=== PATIENT | male | born 1940 | race Caucasian/White ===

== ENCOUNTER 2016-08-24 15:41 | Inpatient (IN) | payer OTHER, MEDICAID ==
[~2016-08-24] VITALS: Ht 193 cm; Wt 86.6 kg
[2016-08-24 15:45] VITALS: BP 132/91; PULSE 82; RESP 18; TEMP 97.2; O2SAT 95
--- NOTE | 2016-08-24 15:52 | NUR ---
Placed in room [address] monitor, blood pressure machine and pulse oximeter. To gown for exam. Side rails up. Report given to Bhavana VALENTINE.
--- NOTE | 2016-08-24 15:53 | NUR ---
Pupils equal and reactive to light bilaterally. No facial droop noted. No smile deficit noted. Speech clear. Bilateral hand engraver letter equal. Bilateral foot push equal.
--- NOTE | 2016-08-24 15:53 | NUR ---
Stable condition, son in law present. Patient alert to name and event, in and out of confusion. Son in law states that his called patient last night but that he did not know who the was-per son in law, patient's baseline is confused but he always remembers family and is concerned about increased confusion. Son in law also states that patient became quickly tired when walking today (not baseline). Patient denies feeling unusual or tired, shortness of breath, chest pain, pressure or radiating pain.No other complaints/injuries per son in law/patient or noted.
--- NOTE | 2016-08-24 15:54 | NUR ---
Dr. Mccauley at bedside
[2016-08-24] MEDS ORDERED: NACL 0.9% 1,000 ML IV ONE (17:00)
[2016-08-24] MEDS ORDERED: MORPHINE 4 MG/ML INJ. SYRINGE IVP ONE (17:00)
[2016-08-24] MEDS ORDERED: ONDANSETRON HCL 4 MG/5 ML UDC PO ONE (17:00)
[2016-08-24 17:04] LABS: BASOPHILS # (AUTO) 0.1 K/uL (0.0-0.2); BASOPHILS % (AUTO) 0.7 % (0.0-2.0); EOSINOPHILS # (AUTO) 0.2 K/uL (0.0-0.4); EOSINOPHILS % (AUTO) 2.8 % (0.0-4.0); HEMATOCRIT 45.8 % (36-54); HEMOGLOBIN 14.8 g/dL (14.0-18.0); LYMPHOCYTES # (AUTO) 1.4 K/uL (1.0-5.5); LYMPHOCYTES % (AUTO) 17.1 % (20.5-51.5); MEAN CORPUSCULAR HEMOGLOBIN 31 pg (27-31); MEAN CORPUSCULAR HGB CONC 32 % (32-36); MEAN CORPUSCULAR VOLUME 94 fL (79.0-98.0); MONOCYTES # (AUTO) 0.5 K/uL (0.0-1.0); MONOCYTES % (AUTO) 6.5 % (1.7-9.3); NEUTROPHILS # (AUTO) 6.1 K/uL (1.8-7.7); NEUTROPHILS % (AUTO) 72.9 % (40.0-70.0); PLATELET COUNT (AUTO) 183 K/uL (130-430); RED BLOOD CELL COUNT(AUTO) 4.87 MIL/uL (4.2-6.2); RED CELL DISTRIBUTION WIDTH 13.6 % (9.0-15.0); WHITE BLOOD COUNT (AUTO) 8.3 K/uL (4.8-10.8)
[2016-08-24 17:12] LABS: ANION GAP 9 (5-15); CHLORIDE 103 mmol/L (98-107); CREATININE 1.37 mg/dL (0.55-1.30); GLUCOSE 117 mg/dL (70-99); POTASSIUM 4.3 mmol/L (3.5-5.1); SODIUM SERUM 135 mmol/L (136-145); UREA NITROGEN, BLOOD 20 mg/dL (8-21)
--- NOTE | 2016-08-24 17:12 | NUR ---
Patient returned from CT, stable condition.
[2016-08-24 17:17] LABS: ALANINE AMINOTRANSFERASE 50 U/L (12-78); ALBUMIN 3.8 g/dL (3.4-4.8); ASPARTATE AMINOTRANSFERASE 36 U/L (10-37); TOTAL BILIRUBIN 1.7 mg/dL (0.0-1.0); TOTAL PROTEIN, SERUM 7.3 g/dL (6.4-8.3)
[2016-08-24 17:23] LABS: PROTHROMBIN TIME 78.9 SECS (9.5-12.5)
[2016-08-24 17:24] LABS: INR 6.8 (0.80-1.20)
[2016-08-24] MEDS ORDERED: ASPIRIN 81 MG TAB.CHEW PO ONE (18:00)
--- NOTE | 2016-08-24 18:00 | NUR ---
Patient denies feeling unusual or tired, shortness of breath, chest pain, pressure or radiating pain.
--- NOTE | 2016-08-24 18:01 | NUR ---
Clarified with Dr. Mccauley regarding Aspirin order with high PT and INR, stated need to still administer for patient.
[2016-08-24] MEDS ORDERED: AMI200 PO (18:51)
[2016-08-24] MEDS ORDERED: WARF2.5T2 PO (18:51)
[2016-08-24] MEDS ORDERED: COR6.25 PO (18:51)
[2016-08-24] MEDS ORDERED: ENAL5TAB85 PO (18:51)
[2016-08-24] MEDS ORDERED: POTA20TA83 PO (18:51)
--- NOTE | 2016-08-24 18:51 | NUR ---
Medication reconciliation completed with information provided by son in law. Any prior medication reconciliation on file was reviewed and corrected.
--- NOTE | 2016-08-24 19:13 | NUR ---
Report given to Sameer RN over phone, night RN to transfer patient (care endorsed)
[2016-08-24 19:21] VITALS: BP 127/89; PULSE 68; RESP 18; TEMP 98; O2SAT 100
--- NOTE | 2016-08-24 19:21 | NUR ---
Admission Note Received patient from ER with diagnosis of WEAKNESS, POSITIVE TROPONIN, COAGULOPATY. Initial Plan of Care discussed-patient verbalized understanding. Family at bedside. Oriented to room, call light, pain management and safety.
--- NOTE | 2016-08-24 19:25 | NUR ---
PM ASSESSMENT PT. A/OX2, WITH PERIODS OF FORGETFULNESS, VITAL SIGNS STABLE, NO DISTRESS NOTED, DENIES PAIN, UPDATED WITH PLAN OF CARE, ENCOURAGED PT. TO USE CALL LIGHT FOR ASSISTANCE, CALL LIGHT WITHIN REACH, WILL CONTINUE TO MONITOR.
--- NOTE | 2016-08-24 19:30 | NUR ---
Patient will be admitted to care of . Admitted to tele unit. Will go to room 121A. Belongings list completed. Summary report printed. Report given to Ryan via phone
--- NOTE | 2016-08-24 19:30 | NUR ---
[facility] 2 Licensed nurse present. IV present no signs or symptoms of infiltration.
[2016-08-24 20:00] VITALS: BP 127/89; PULSE 68; RESP 18; TEMP 98; O2SAT 100
--- NOTE | 2016-08-24 21:00 | NUR ---
AMBULATION SON IN LAW AT BEDSIDE, AMBULATED WITH PT. DOWN THE HALLWAY, AMBULATED BACK TO BED SAFELY, BED ALARM BACK ON.
--- NOTE | 2016-08-24 23:00 | NUR ---
DR. ELIDA MARRERO AT BEDSIDE.
[2016-08-25] VITALS (8 sets, daily range): BP systolic 98–142; BP diastolic 56–96; PULSE 60–80; RESP 16–19; TEMP 96.2–97.2; O2SAT 93–99
--- NOTE | 2016-08-25 01:00 | NUR ---
RN ROUNDS PT. RESTING QUIETLY, VITAL SIGNS STABLE, NO DISTRESS NOTED, DENIES PAIN. CALL LIGHT WITHIN REACH, WILL CONTINUE TO MONITOR.
--- NOTE | 2016-08-25 03:00 | NUR ---
RN ROUNDS PT. RESTING QUIETLY, VITAL SIGNS STABLE, NO DISTRESS NOTED, DENIES PAIN. CALL LIGHT WITHIN REACH, WILL CONTINUE TO MONITOR.
--- NOTE | 2016-08-25 03:42 | NUR ---
IV RESTART IV TO LAC FOUND OUT OF PLACE. NEW IV RESTARTED TO R. WRIST 20G. SALINE LOCKED, SECURED WITH KRELIX WRAP.
--- NOTE | 2016-08-25 05:00 | NUR ---
RN ROUNDS PT. RESTING QUIETLY, VITAL SIGNS STABLE, NO DISTRESS NOTED, DENIES PAIN. CALL LIGHT WITHIN REACH, WILL CONTINUE TO MONITOR.
--- NOTE | 2016-08-25 05:51 | NUR ---
MORNING CONSULT FOR DR ORTIZ WAS CALLED AT 0550 AM SPOKE WITH SALEEM
[2016-08-25 06:18] LABS: BASOPHILS # (AUTO) 0.1 K/uL (0.0-0.2); BASOPHILS % (AUTO) 0.7 % (0.0-2.0); EOSINOPHILS # (AUTO) 0.1 K/uL (0.0-0.4); HEMATOCRIT 48.9 % (36-54); HEMOGLOBIN 15.9 g/dL (14.0-18.0); LYMPHOCYTES # (AUTO) 1.1 K/uL (1.0-5.5); MEAN CORPUSCULAR HEMOGLOBIN 31 pg (27-31); MEAN CORPUSCULAR HGB CONC 33 % (32-36); MEAN CORPUSCULAR VOLUME 94 fL (79.0-98.0); MONOCYTES # (AUTO) 0.9 K/uL (0.0-1.0); MONOCYTES % (AUTO) 7.9 % (1.7-9.3); NEUTROPHILS # (AUTO) 8.8 K/uL (1.8-7.7); NEUTROPHILS % (AUTO) 80.4 % (40.0-70.0); PLATELET COUNT (AUTO) 170 K/uL (130-430); RED BLOOD CELL COUNT(AUTO) 5.19 MIL/uL (4.2-6.2); RED CELL DISTRIBUTION WIDTH 13.6 % (9.0-15.0)
--- NOTE | 2016-08-25 06:32 | NUR ---
CLOSING NOTES PT. RESTING QUIETLY, VITAL SIGNS STABLE, NO DISTRESS NOTED, DENIES PAIN. CALL LIGHT WITHIN REACH.
[2016-08-25 06:41] LABS: ALANINE AMINOTRANSFERASE 42 U/L (12-78); ALBUMIN 3.5 g/dL (3.4-4.8); ANION GAP 7 (5-15); ASPARTATE AMINOTRANSFERASE 33 U/L (10-37); CHLORIDE 107 mmol/L (98-107); CREATININE 1.35 mg/dL (0.55-1.30); GLUCOSE 111 mg/dL (70-99); POTASSIUM 4.5 mmol/L (3.5-5.1); SODIUM SERUM 137 mmol/L (136-145); TOTAL BILIRUBIN 2.2 mg/dL (0.0-1.0); UREA NITROGEN, BLOOD 21 mg/dL (8-21)
--- NOTE | 2016-08-25 07:19 | NUR ---
A/OX2, ABLE TO STATE HIS NAME AND TIME, BUT IS NOT AWARE OF WHERE HE IS AT OR WHY HE IS HERE. PACED RHYTHM ON MONITOR. IV ON RIGHT WRST, #20, SL. NO SIGNS OF DISTRESS NOTED AT THIS TIME. CALL LIGHT IN PLACE, BED LOCKED AND AT LOWEST POSITION, BED ALARM ON, AND INSTRUCTED PATIENT TO USE CALL LIGHT FOR NEEDS. WILL MONITOR CLOSELY.
[2016-08-25] MEDS: POTASSIUM CHLORIDE 20 MEQ TAB.PRT.SR PO SCH (08:31)
[2016-08-25] MEDS: AMIODARONE HCL 200 MG TABLET PO SCH (08:32)
[2016-08-25] MEDS: ENALAPRIL MALEATE 5 MG TABLET (VASOTEC) PO SCH (08:32)
[2016-08-25] MEDS: CARVEDILOL 6.25 MG TABLET (COREG) PO SCH (08:32)
[2016-08-25] MEDS ORDERED: WARFARIN SODIUM 2.5 MG TABLET PO SCH (09:00)
[2016-08-25 09:42] LABS: INR 7.9 (0.80-1.20); PROTHROMBIN TIME 91.3 SECS (9.5-12.5)
--- NOTE | 2016-08-25 09:45 | NUR ---
patient is confused and insisted that his friend will come in to pick him up. Dr. Zuniga is called, awaiting call back.
[2016-08-25] MEDS ORDERED: PHYTONADIONE 10 MG/ML AMP SUBCUT ONE (10:15)
[2016-08-25] MEDS ORDERED: FUROSEMIDE 20 MG/2 ML VIAL IVP ONE (10:30)
--- NOTE | 2016-08-25 10:30 | NUR ---
DR MARRERO IS HERE TO SEE PATIENT. ORDERS WERE GIVEN, WILL BE CARRIED OUT.
--- NOTE | 2016-08-25 12:50 | NUR ---
PATIENT FINISHED EATING HIS LUNCH. NO SIGNS OF ACUTE DISTRESS NOR AGITATION NOTED.
--- NOTE | 2016-08-25 14:25 | NUR ---
PATIENT IS RESTING AT THE FRONT LOBBY OF THE HOSPITAL. ABLE TO AMBULATE WITH ASSIST FOR ABOUT 30 FEET BEFORE C/O SOB; O2 SAT 91% ON ROOM AIR.
--- NOTE | 2016-08-25 16:20 | NUR ---
patient is at rest in bed, no signs of distress noted. Paced rhythm on monitor.
--- NOTE | 2016-08-25 18:30 | NUR ---
Patient is at rest, no signs of distress noted. Dr. Miles assessed patient, and orders were given.
--- NOTE | 2016-08-25 19:20 | NUR ---
INITIAL NOTES RECVD PT IN BED AWAKE/ALERT BUT CONFUSED. NO S/S OF PAIN OR ANY DISTRESS NOTED. IV NOTED TO R WRIST G 20, NO INFILTRATE AND WITH GOOD BLOOD RETURN. BUE ARE STRONG BUT BLE ARE WEAK; SITTER @ BEDSIDE. BED IN LOW POSITION WITH CALL LIGHT WITHIN REACH. WILL CONT TO MONITOR.
--- NOTE | 2016-08-25 20:20 | NUR ---
ROUNDS ABUNDIO IS COMFORTABLY RESTING WITH SITTER @ BEDSIDE. NO S/S OF ANY PAIN OR DISTRESS NOTED. BED I LOW POSITION WITH CALL LIGHT WITHIN REACH. WILL CONT TO MONITOR.
--- NOTE | 2016-08-25 22:20 | NUR ---
Rounds Pt is comfortably resting in bed with eye close with sitter at bedside. No s/s of any distress noted. Be din low position with side rails up x2. Call light within reach. Will cont to monitor.
--- NOTE | 2016-08-26 00:20 | NUR ---
Rounds Pt is comfortably resting in bed with eye close with sitter at bedside. No s/s of any distress noted. Be din low position with side rails up x2. Call light within reach.
--- NOTE | 2016-08-26 02:20 | NUR ---
ROUNDS Pt is comfortably resting in bed with sitter @ bedside. No s/s of any distress noted. Be din low position with side rails up x2. Call light within reach.
[2016-08-26 04:26] VITALS: BP 117/74; PULSE 70; RESP 18; TEMP 97.8; O2SAT 100
[2016-08-26 06:50] LABS: ALANINE AMINOTRANSFERASE 34 U/L (12-78); ANION GAP 6 (5-15); ASPARTATE AMINOTRANSFERASE 24 U/L (10-37); BASOPHILS # (AUTO) 0.1 K/uL (0.0-0.2); BASOPHILS % (AUTO) 1.1 % (0.0-2.0); CALCIUM 8.8 mg/dL (8.4-11.0); CHLORIDE 105 mmol/L (98-107); CREATININE 1.46 mg/dL (0.55-1.30); EOSINOPHILS # (AUTO) 0.3 K/uL (0.0-0.4); EOSINOPHILS % (AUTO) 2.9 % (0.0-4.0); GLUCOSE 83 mg/dL (70-99); HEMATOCRIT 41.3 % (36-54); LYMPHOCYTES # (AUTO) 1.4 K/uL (1.0-5.5); LYMPHOCYTES % (AUTO) 15.1 % (20.5-51.5); MEAN CORPUSCULAR HEMOGLOBIN 32 pg (27-31); MEAN CORPUSCULAR HGB CONC 34 % (32-36); MEAN CORPUSCULAR VOLUME 94 fL (79.0-98.0); MONOCYTES # (AUTO) 0.8 K/uL (0.0-1.0); MONOCYTES % (AUTO) 8.5 % (1.7-9.3); NEUTROPHILS # (AUTO) 6.5 K/uL (1.8-7.7); NEUTROPHILS % (AUTO) 72.4 % (40.0-70.0); PLATELET COUNT (AUTO) 173 K/uL (130-430); POTASSIUM 4.4 mmol/L (3.5-5.1); RED BLOOD CELL COUNT(AUTO) 4.39 MIL/uL (4.2-6.2); RED CELL DISTRIBUTION WIDTH 13.6 % (9.0-15.0); SODIUM SERUM 138 mmol/L (136-145); TOTAL PROTEIN, SERUM 5.9 g/dL (6.4-8.3); UREA NITROGEN, BLOOD 27 mg/dL (8-21); WHITE BLOOD COUNT (AUTO) 9.1 K/uL (4.8-10.8)
--- NOTE | 2016-08-26 07:00 | NUR ---
FINAL NOTES PT IS RESTING COMFORTABLY @ THIS TIME. NO S/SS OF DISTRESS NOTED. V/S ARE WNL . ALL NEEDS MET AND ANTICIPATED BY NOC NURSES. BED IN LOW POSITION WITH SIDE RAILS UP X2. CALL LIGHT WITHIN REACH. ENDORSED.
[2016-08-26 07:36] VITALS: BP 112/68; PULSE 69; RESP 16; TEMP 97.9; O2SAT 97
--- NOTE | 2016-08-26 07:42 | NUR ---
am notes: report given by john night nurse. patient lying on the bed,awake,alert and oriented x3. with sitter at the bedside,assisting the breakfast. no distress.
[2016-08-26 07:52] LABS: PROTHROMBIN TIME 43.4 SECS (9.5-12.5)
[2016-08-26 07:53] LABS: INR 3.8 (0.80-1.20)
--- NOTE | 2016-08-26 08:20 | NUR ---
meds: patient took all his morning meds.well tolerated.
[2016-08-26] MEDS: AMIODARONE HCL 200 MG TABLET PO SCH (08:41)
[2016-08-26] MEDS: POTASSIUM CHLORIDE 20 MEQ TAB.PRT.SR PO SCH (08:42)
[2016-08-26] MEDS: CARVEDILOL 6.25 MG TABLET (COREG) PO SCH (08:42)
[2016-08-26] MEDS: ENALAPRIL MALEATE 5 MG TABLET (VASOTEC) PO SCH (09:00)
--- NOTE | 2016-08-26 09:07 | NUR ---
Nutrition Update Perico Scale 18 noted. Pt admitted for weakness, positive troponin, coagulopathy. Diet: regular BMI: 23.2 kg/m2 RD to follow per nutrition care standards.
--- NOTE | 2016-08-26 10:24 | NUR ---
MD ROUNDS: PATIENT SEEN BY DR RASHID WITH ORDERS HOSPICE EVAL AND MD SPOKE TO PT'S DAUGHTER ADRIANE REGARDING PLANNED OF CARE.
--- NOTE | 2016-08-26 10:50 | NUR ---
Social Service Note: Pt has order for hospice evaluation; [employer] contacted Harmony ([phone]) insurance clerk; Harmony stated that she would be contacting [facility] for the evaluation. [employer] will remain available and will follow up as needed.
[2016-08-26 12:00] VITALS: BP 96/57; PULSE 62; RESP 19; TEMP 97.6; O2SAT 96
--- NOTE | 2016-08-26 12:10 | NUR ---
rounds: sitter assisted patient during lunch.
[2016-08-26 13:37] VITALS: BP 96/57; PULSE 62; RESP 19; TEMP 97.6; O2SAT 96
--- NOTE | 2016-08-26 14:35 | NUR ---
rounds: awake,no problem. with sitter at bedside.
--- NOTE | 2016-08-26 15:09 | NUR ---
rounds: resting. with sitter at bedside. calm this time.
--- NOTE | 2016-08-26 16:50 | NUR ---
rounds: with sitter at bedside. watching tv.
--- NOTE | 2016-08-26 17:53 | NUR ---
rounds: patient having dinner. sitter at bedside.
--- NOTE | 2016-08-26 18:37 | NUR ---
CLOSING NOTES: PATIENT PLEASANTLY TALKING AND CALM THIS TIME. NO DISTRESS. SITTER AT BEDSIDE.STILL WAITING FOR HOSPICE ACCEPTANCE.
--- NOTE | 2016-08-26 19:28 | NUR ---
PM ASSESSMENT PT. A/OX2, NOTED WITH PERIODS OF FORGETFULNESS, REORIENTED TO REALITY, NO DISTRESS NOTED, DENIES PAIN, SITTER AT BEDSIDE, FALL/SAFETY PRECAUTIONS MAINTAINED. WILL CONTINUE TO MONITOR.
[2016-08-26 19:53] VITALS: BP 92/55; PULSE 67; RESP 18; TEMP 97; O2SAT 96
--- NOTE | 2016-08-26 21:30 | NUR ---
SON IN AT BEDSIDE PAU SANDERS IS AT BEDSIDE, UPDATED WITH PLAN OF CARE, PT. AMBULATED WITH SON IN AND COLLEGE DEAN DOWN THE HALLWAY AND BACK TO BED SAFELY, PT. DENIES SHORTNESS OF BREATH, PT. DENIES PAIN, PT. TOLERATED ACTIVITY WELL.
--- NOTE | 2016-08-26 23:30 | NUR ---
RN ROUNDS PT. SLEEPING AT THIS TIME, VITAL SIGNS STABLE, NO DISTRESS NOTED, DENIES PAIN. WILL CONTINUE TO MONITOR.
[2016-08-27] VITALS: BP 123/65; PULSE 63; RESP 18; TEMP 96.7; O2SAT 97
--- NOTE | 2016-08-27 01:30 | NUR ---
RN ROUNDS PT. SLEEPING AT THIS TIME, VITAL SIGNS STABLE, NO DISTRESS NOTED, DENIES PAIN. WILL CONTINUE TO MONITOR.
--- NOTE | 2016-08-27 03:30 | NUR ---
RN ROUNDS PT. SLEEPING AT THIS TIME, VITAL SIGNS STABLE, NO DISTRESS NOTED, DENIES PAIN. WILL CONTINUE TO MONITOR.
[2016-08-27 04:06] VITALS: BP 116/74; PULSE 63; RESP 19; TEMP 96.8; O2SAT 95
--- NOTE | 2016-08-27 05:30 | NUR ---
RN ROUNDS PT. SLEEPING AT THIS TIME, VITAL SIGNS STABLE, NO DISTRESS NOTED, DENIES PAIN. WILL CONTINUE TO MONITOR.
--- NOTE | 2016-08-27 06:24 | NUR ---
CLOSING NOTES PT. RESTING QUIETLY, VITAL SIGNS STABLE, NO DISTRESS NOTED, DENIES PAIN. IV ACCESS FLUSHED WELL.
[2016-08-27 06:34] LABS: INR 2.6 (0.80-1.20); PROTHROMBIN TIME 29.3 SECS (9.5-12.5)
[2016-08-27 07:19] VITALS: BP 122/61; PULSE 70; RESP 19; TEMP 97.2; O2SAT 92
[2016-08-27 08:00] VITALS: BP 122/61; PULSE 70; RESP 18; TEMP 98; O2SAT 98
[2016-08-27] MEDS: ENALAPRIL MALEATE 5 MG TABLET (VASOTEC) PO SCH (08:37)
[2016-08-27] MEDS: AMIODARONE HCL 200 MG TABLET PO SCH (08:37)
[2016-08-27] MEDS: CARVEDILOL 6.25 MG TABLET (COREG) PO SCH (08:38)
[2016-08-27] MEDS: POTASSIUM CHLORIDE 20 MEQ TAB.PRT.SR PO SCH (08:38)
[2016-08-27 13:18] VITALS: BP 122/73; PULSE 70; RESP 19; TEMP 97.7; O2SAT 99
--- NOTE | 2016-08-27 14:09 | NUR ---
HCP/PA: Called MAKEDA Antunez made her aware of discharge to SNF with Hospice. Addendum: 08/27/16 at 1422 by Norma Acosta DP Received call from MAKEDA Antunez who stated patient accepted at [facility] and on service with [facility] [phone] who will be make all arrangements.
--- NOTE | 2016-08-27 15:23 | NUR ---
PHYSICAL THERAPY CO-SIGN The Physical Therapy Progress Notes documented by Mitochondrial Disorders Counselor have been reviewed. I CONCUR W/NURSE COORDINATOR NOTE; CONT PER TX PLAN Reviewed/Co-Signed by: Urmila Jacob PT Documentation Done by: RUBIO DYE NURSE COORDINATOR Addendum: 08/27/16 at 1523 by Urmila Jacob PT Amended: Links added.
[2016-08-27 17:26] VITALS: BP 120/73; PULSE 68; RESP 20; TEMP 96.8; O2SAT 93
[2016-08-27] MEDS ORDERED: WARFARIN SODIUM 1 MG TABLET PO SCH (18:00)
--- NOTE | 2016-08-27 18:53 | NUR ---
PATIENT SIGNED CONSENT FOR TRANSPORT NO ROOM NUMBER GIVEN, NOR REPORT NUMBER TO CALL. CM HAS GONE HOME FOR THE DAY. PER PATIENT HAS BED ASSIGNED AND TRANSPORT WILL BE COMING AT 1930
--- NOTE | 2016-08-27 19:30 | NUR ---
Notes Received patient sitting at the edge of the bed resting, denies of any pain, no acute distress noted, IV site checked intact and patent, saline lock. Vital sign stable. Daughter at the bedside. Waiting for ambulance patient is going to [facility] room 403A tonight.
--- NOTE | 2016-08-27 20:15 | NUR ---
PT TRANSFERRED Per Tamara RN morning nurse she already gave report to receiving nurse.Transfer packet with Transfer Orders and Medication Reconciliation form given to EMT with report. Exitcare provided. [facility] ID band removed, replaced with ID band with pt's name and . IV catheter still in place, dressing, clean, dry and intact. All belongings sent with patient. Patient left floor via gurney escorted by EMT in no distress.
== END 2016-08-27 20:20 | DRG 682 ==
LOC: SED 15:41 → STU 19:15
PROVIDERS: ADMIT Internal Medicine Hospice and Palliative Medicine; ATTEND Internal Medicine Hospice and Palliative Medicine
DX: N17.0 Acute kidney failure with tubular necrosis (principal); I50.23 Acute on chronic systolic (congestive) heart failure; J44.1 Chronic obstructive pulmonary disease with (acute) exacerbation; D68.9 Coagulation defect, unspecified; I42.9 Cardiomyopathy, unspecified; I11.0 Hypertensive heart disease with heart failure; T45.515A Adverse effect of anticoagulants, initial encounter; F03.90 Unspecified dementia, unspecified severity, without behavioral disturbance, psychotic disturbance, mood disturbance, and anxiety; R26.2 Difficulty in walking, not elsewhere classified; R79.1 Abnormal coagulation profile; Z86.73 Personal history of transient ischemic attack (TIA), and cerebral infarction without residual deficits; I25.2 Old myocardial infarction; Z95.810 Presence of automatic (implantable) cardiac defibrillator; Z87.891 Personal history of nicotine dependence
CPT/HCPCS: 36415; 70450-TC; 71010; 80053; 82140-TC; 83735-TC; 84100-TC; 84484; 85025; 85610-TC; 85730-TC; 93005; 93306; 96360; 97110-GP; 97116-GP; 97530-GP; 99285; J1940; J3430; J7030